=== PATIENT | male | born 1990 | race Caucasian/White ===

== ENCOUNTER 2020-09-18 18:43 | Outpatient (REF) | payer OTHER, SELFPAY ==
[2020-09-18 22:08] LABS: HCT 44.8 % (40.0-50.0); HGB 15.3 g/dL (13.5-17.5); MCH 28.2 pg (27.0-33.0); MCHC 34.2 % (32.0-36.0); MCV 82.5 fL (80-95); MPV 11.8 fL (8.0-11.0); Platelet Count 174 10^3/uL (130-400); RBC 5.43 10^6/uL (4.36-5.78); RDW-SD 35.9 fL; WBC 7.74 10^3/uL (4.4-10.8)
[2020-09-18 22:26] LABS: ALT 66 U/L (16-63); AST 29 U/L (15-37); Albumin 4.6 g/dL (3.4-5.0); Alkaline Phosphatase 97 U/L (46-116); Anion Gap 8.6 mmol/L (3-11); BUN 17 mg/dL (7-18); Bilirubin, Total 0.4 mg/dL (0.2-1.0); CO2 25.4 mmol/L (21.0-32.0); Calcium 9.3 mg/dL (8.5-10.1); Chloride 103 mmol/L (98-107); Glucose 89 mg/dL (74-106); Potassium 3.9 mmol/L (3.5-5.1); Sodium 137 mmol/L (136-145); Total Protein 7.7 g/dL (6.4-8.2)
== END 2020-09-18 18:44 | disposition home or self-care (01) ==
LOC: NCHCN 18:43
PROVIDERS: PCP Nurse Practitioner Family; Visit Provider Family Medicine
DX: I10 Essential (primary) hypertension (principal); F10.20 Alcohol dependence, uncomplicated
CPT/HCPCS: 80053; 85027

== ENCOUNTER 2021-06-24 19:50 | Outpatient (REF) | payer OTHER, SELFPAY ==
[2021-06-26 13:18] LABS: COVID-19 RT-PCR UVMMC Result Negative (Negative)
== END 2021-06-24 19:51 | disposition home or self-care (01) ==
LOC: NCHCN 19:50
PROVIDERS: PCP Nurse Practitioner Family; Visit Provider Nurse Practitioner Family
DX: Z20.822 Contact with and (suspected) exposure to COVID-19 (principal)
CPT/HCPCS: U0003

== ENCOUNTER 2022-05-31 23:08 | Emergency (ER) | payer OTHER, SELFPAY ==
[2022-05-31 23:15] VITALS: BP 136/108; PULSE 117; RESP 16; TEMP 36.6; O2SAT 99
--- NOTE | 2022-05-31 23:15 | DI.RAD_ITS ---
Exam(s) XR HAND RT COMPLETE EXAM: XR HAND RT COMPLETE CLINICAL HISTORY: Dog bite, R/O Foreign body, 4th digit laceration. TECHNIQUE: 2D digital imaging was performed. COMPARISON: No exams were available for comparison FINDINGS: 3 views No fracture or dislocation. No radiopaque foreign body. No osseous lesions nor erosions. IMPRESSION: No significant osseous findings. DATA REPOSITORY: RADIATION DOSE DELIVERED:
--- NOTE | 2022-05-31 23:27 | ED.GENADUL_ITS ---
Discharge Plan Disposition Patient Disposition: Home Condition: Stable Discharge Details Clinical Impression: Dog bite of multiple sites of right hand and fingers, Dog bite of multiple sites of left hand and fingers Primary Care Provider: Britney Laguna ED Provider: Geetha Stevens Home Meds and New Rx's Prescriptions: New amoxicillin-pot clavulanate 875-125 mg tablet 1 tab PO BID 10 Days Qty: 20 0RF Discharge Instructions Instructions: Animal Bite (ED), Finger Laceration (ED) Additional Instructions: Please have sutures removed in 7 to 10 days. Please take the antibiotic twice daily with yogurt or probiotic as directed. Wash daily with soap and water. Allowed to air dry. Keep covered when working or out in the dirt. Please allow the laceration to begin healing at least for the first few days. Please take Tylenol or Ibuprofen with food every 4-6 hours as needed for pain and swelling. Please follow-up with your primary care provider in 3 to 5 days for a wound recheck Please be seen again for any red streaks that extend up into your palm or wrist, inability to close your hand, redness swelling or any concerns. Stand Alone Forms: Work Release Referrals: Britney Laguna [Primary Care Provider] - 5 days (Please be seen for a wound recheck in 3 to 5 days.) Medical Decision Making <Geetha Stevens NP - Last Filed: 06/01/22 00:48> 32-year-old male presents to the ER status post dog bite which was provoked by his own dog which occurred just prior to arrival. Patient reports that tetanus is up-to-date, he also reports that his dog is up-to-date on his vaccinations. He reports that he was try to get the dog out of the crate when his [place] bit him. He does have multiple small lacerations to his bilateral hands, the largest measuring approximately 1-1/2 cm to 2 cm to his right fourth digit on the palmar side. X-ray ordered of his right hand to patient report that dog clamped down for unknown amount of time and severe pain, rule out foreign body and/or fracture. Augmentin and ibuprofen and wound care ordered. Will consider tissue adhesive or Steri-Strips. X-ray shows no acute abnormality. No foreign body or fracture noted on my interpretation. Dr. Henning at bedside for laceration repair and digital block please see his procedure note.. Will place patient on Augmentin. Did discuss home care, work limitations and strict return instructions. Patient is left- hand dominant. This text was generated using [employer] system, please disregard any oddities of phrase or misspellings. <David Henning DO - Last Filed: 06/01/22 00:17> Sign Out No HPI <Geetha Stevens NP - Last Filed: 06/01/22 00:48> General Mode of arrival: ambulatory . Date/Time Provider Initiated Documentation: 05/31/22 23:20 . Limitations to Documentation: no limitations . Information obtained by: patient, RN notes reviewed and old records reviewed . HPI Narrative: 32-year-old male presents to the ER status post dog bite which was provoked by his own dog which occurred just prior to arrival. Patient reports that tetanus is up-to-date, he also reports that his dog is up-to-date on his vaccinations. He reports that he was try to get the dog out of the crate when his [place] bit him. He does have multiple small lacerations to his bilateral hands, the largest measuring approximately 1-1/2 cm to 2 cm to his right fourth digit on the palmar side. He does have intact circulation sensation and movement noted on initial exam. He is able to flex his fingers. No other injuries noted. Related Data Home Medications Medication Instructions Recorded Confirmed amoxicillin 875 mg-potassium 1 tab PO BID 10 days #20 tabs 06/01/22 clavulanate 125 mg tablet Previous Rx's Medication Instructions Recorded amoxicillin 875 mg-potassium 1 tab PO BID 10 days #20 tabs 06/01/22 clavulanate 125 mg tablet Allergies Allergy/AdvReac Type Severity Reaction Status Date / Time No Known Allergies Allergy Unverified 03/03/16 13:05 General Stated Complaint: AnimalBite RUTHANN: 3 Review of Systems <Geetha Stevens NP - Last Filed: 06/01/22 00:48> All systems reviewed & are unremarkable except as noted in HPI and below Integumentary/Breasts Skin/Breast: Reports as per HPI and Reports wounds (Bilateral hands) PFSH <Geetha Stevens NP - Last Filed: 06/01/22 00:48> All Active Problems (Updated 06/01/22 @ 00:14 by Geetha Stevens NP) Dog bite of multiple sites of right hand and fingers (Acute) Dog bite of multiple sites of left hand and fingers (Acute) Social History Smoking/Tobacco Use Status: Current every day Smoking risk assessment performed?: Yes Drug use: Occasionally Do you feel safe at home: Yes Do you feel safe in your relationship?: Yes Exam <Geetha Stevens NP - Last Filed: 06/01/22 00:48> Extrem Right upper extremity: full ROM (Is able to flex his finger at the DIP and PIP), normal capillary refill, wrist Details: normal to inspection and normal ROM and hand (See diagram below) Left upper extremity: full ROM, normal capillary refill, wrist Details: normal to inspection and normal ROM and hand (See diagram below) Hand/finger images: 1. Laceration noted, bleeding controlled with pressure. 2. Multiple small puncture wounds 3. Multiple small puncture wounds 4. Multiple small puncture wounds 5. Multiple small superficial puncture wounds Course <Geetha Stevens NP - Last Filed: 06/01/22 00:48> Vital Signs Vital signs: Vital Signs Temperature 36.6 C 05/31/22 23:15 Pulse 117 H 05/31/22 23:15 Respiratory Rate 16 05/31/22 23:15 Blood Pressure 136/108 H 05/31/22 23:15 Pulse Oximetry 99 05/31/22 23:15 Temperature 36.6 C 05/31/22 23:15 Temperature Source Oral 05/31/22 23:15 Pulse 117 H 05/31/22 23:15 Respiratory Rate 16 05/31/22 23:15 Respiratory Effort 05/31/22 23:19 Blood Pressure 136/108 H 05/31/22 23:15 Pulse Oximetry 99 05/31/22 23:15 Pain Level 10 05/31/22 23:15 <David Henning DO - Last Filed: 06/01/22 00:17> Laceration Laceration 1: Site: hand (right ring finger) Side (If applicable): right Size (cm): 2 Description: linear Depth: simple, single layer Local Anesthetic: Lidocaine 1% Amount of anesthesia used (mL): 5 Pre-repair: wound explored, irrigated extensively and deep structures intact Skin layer closed with: nylon Size (cm): 4-0 Number of sutures: 1 Technique: simple, interrupted
[2022-05-31] MEDS: Amoxicillin 875/Clav. 125 TAB PO (23:41)
[2022-05-31] MEDS: Ibuprofen 800 MG TAB PO (23:42)
--- NOTE | 2022-06-01 00:02 | DI.VRAD_ITS ---
PROCEDURE INFORMATION: Exam: XR Right Hand Exam date and time: 05/31/2022 11:36 PM Age: 32 years old Clinical indication: Injury or trauma; Other: Dog bite; Ring finger; Right TECHNIQUE: Imaging protocol: Radiologic exam of the Right hand. Views: 3 or more views. COMPARISON: No relevant prior studies available. FINDINGS: Bones/joints: Normal. Soft tissues: Normal. IMPRESSION: No acute findings. Dictated and Authenticated by: Jordy Michael MD. Ordering:LINDSEY Iniguez MD
== END 2022-06-01 00:28 | disposition home or self-care (01) ==
LOC: ER 06-01 00:33
PROVIDERS: Emergency Provider Registered Nurse Emergency; PCP Nurse Practitioner Family
DX: S61.253A Open bite of left middle finger without damage to nail, initial encounter (principal); S61.052A Open bite of left thumb without damage to nail, initial encounter; S61.250A Open bite of right index finger without damage to nail, initial encounter; S61.254A Open bite of right ring finger without damage to nail, initial encounter; S61.256A Open bite of right little finger without damage to nail, initial encounter; W54.0XXA Bitten by dog, initial encounter
CPT/HCPCS: 12001; 99283; 73130